=== PATIENT | female | born 1985 | race Two or more races ===

== ENCOUNTER 2017-08-30 11:14 | Outpatient (CLI) | payer OTHER | END 2017-08-30 11:29 | disposition home or self-care (01) | LOC: MAMO-SONO 11:14 | DX: Z12.31 Encounter for screening mammogram for malignant neoplasm of breast (principal) ==

== ENCOUNTER 2018-09-22 11:08 | Outpatient (CLI) | payer OTHER | END 2018-09-22 13:44 | disposition home or self-care (01) | LOC: LAB 11:08 | DX: J11.1 Influenza due to unidentified influenza virus with other respiratory manifestations (principal); J06.9 Acute upper respiratory infection, unspecified ==

== ENCOUNTER 2022-08-24 09:19 | Outpatient (CLI) | payer OTHER | END 2022-08-24 09:33 | disposition home or self-care (01) | LOC: MAMO-SONO 09:19 | PROVIDERS: ATTEND Obstetrics & Gynecology | DX: Z12.39 Encounter for other screening for malignant neoplasm of breast (principal); N64.4 Mastodynia ==

== ENCOUNTER 2024-04-06 07:40 | Outpatient (CLI) | payer OTHER | END 2024-04-06 07:56 | disposition home or self-care (01) | LOC: MAMO-SONO 07:40 | PROVIDERS: ATTEND Specialist | DX: R07.9 Chest pain, unspecified (principal); R10.9 Unspecified abdominal pain; N93.9 Abnormal uterine and vaginal bleeding, unspecified; R10.2 Pelvic and perineal pain; R19.7 Diarrhea, unspecified; N63 Unspecified lump in breast ==